=== PATIENT | male | born 1940 | race Caucasian/White ===

== ENCOUNTER 2017-02-06 02:58 | Inpatient (IN) | payer OTHER ==
[~2017-02-06] VITALS: Ht 180.3 cm; Wt 193.0 kg
[~2017-02-06 02:58] MED LIST: ALPRAZOLAM0.5 MG PO; ASPIR-LOW81 MG PO; ATORVASTATIN CA10 MG PO; CLARITIN10 M3 PO; DURAGESIC100 MCG TD; FEOSOL325 MG PO; GAVILAX17 GM PO; GLIMEPIRIDE2 MG PO; OXYCODONE HCL15 MG PO; PRINIVIL10 MG PO; TAMSULOSIN HCL0.4 MG PO; TRADJENTA5 MG PO; TYLENOL REGULA325 MG PO
[2017-02-06 03:37] LABS: HEMATOCRIT 29.7 % (38.0-50.0); MCH 27.8 PG (29.0-34.0); MCV 96.1 FL (86-99); MEAN PLAT.VOLUME 9.5 uM^3 (9.0-12.4); NRBC (%) 0.9 /100 WBC (0-0); PLATELET COUNT 143 K/uL (156-360); RBC DIS.WIDTH-CV 17.4 % (11.8-14.6); RBC DIS.WIDTH-SD 59.8 % (39-53); RED BLOOD COUNT 3.09 M/uL (4.00-5.50); WHITE BLOOD COUNT 4.5 K/uL (4.1-10.2)
[2017-02-06 03:46] LABS: CHLORIDE 112 mEq/L (99-109); SODIUM 140 mEq/L (136-147)
[2017-02-06 03:48] LABS: GLUCOSE 145 mg/dL (70-99)
[2017-02-06 03:49] LABS: ANION GAP 10 MEQ/L (2-14)
[2017-02-06 03:50] LABS: TOTAL BILIRUBIN 0.3 mg/dL (0.0-1.0)
[2017-02-06 03:52] LABS: GFR ESTIMATE (CALCULATED) 48 mL/min/
[2017-02-06 03:53] LABS: UREA NITROGEN (BUN) 68 mg/dL (9-23)
[2017-02-06 03:58] LABS: POTASSIUM 6.1 mEq/L (3.7-5.4); TROP-I INTERPRETATION NEGATIVE; TROPONIN-I 0.03 ng/mL (0.0-0.30)
[2017-02-06 04:06] LABS: ALKALINE PHOSPHATASE 514 IU/L (3-129)
[2017-02-06 04:12] LABS: INTER. NORMALIZED RATIO 1.1; PROTHROMBIN TIME 12.3 SEC (10.2-12.9)
[2017-02-06 04:14] LABS: PTT 21.6 SEC (25-37)
[2017-02-06 04:24] LABS: SAMPLE HEMOLYSIS CHECK 0; SAMPLE ICTERIC CHECK 0; SAMPLE LIPEMIA CHECK 0
[2017-02-06 04:30] LABS: LIPASE 33 U/L (1.0-51.0)
[2017-02-06 05:07] LABS: CREATININE 1.6 mg/dL (0.6-1.3)
[2017-02-06 07:20] LABS: ANION GAP 17 MEQ/L (2-14); CHLORIDE 107 mEq/L (99-109); CREATININE 1.6 mg/dL (0.6-1.3); GLUCOSE 133 mg/dL (70-99); ISTAT DEVICE 359068; POTASSIUM > 6.0 mEq/L (3.7-5.4); SODIUM 138 mEq/L (136-147); UREA NITROGEN (BUN) 73 mg/dL (9-23)
[2017-02-06 08:15] LABS: POTASSIUM 6.2 MEQ/L (3.7-5.4)
[2017-02-06] MEDS ORDERED: PROCRIT10000 UNI1 IM (08:26)
[2017-02-06] MEDS ORDERED: ASCORBIC ACID250 MG PO (08:29)
[2017-02-06] MEDS ORDERED: HEPARIN SO5000 UNIT4 SC (08:30)
[2017-02-06] MEDS ORDERED: ALKA-SELTZER H1 EACH PO (08:31)
[2017-02-06] MEDS ORDERED: DUONEB 2.5-0.5 M3 ML AEROSOL (08:32)
[2017-02-06] MEDS ORDERED: VANCOMYCIN125 MG/2.5 PO (08:34)
[2017-02-06 09:03] LABS: GAMMA-GT 17 IU/L (4-73)
[2017-02-06 10:51] LABS: ADD MIUA? NO; BILIRUBIN NEGATIVE; BLOOD NEGATIVE; COLOR YELLOW ((YELLOW)); GLUCOSE (STRIP) NEGATIVE; KETONES NEGATIVE; LEUKOCYTES NEGATIVE; NITRITE NEGATIVE; PROTEIN (STRIP) NEGATIVE; SPECIFIC GRAVITY 1.011 (1.000-1.030); UCUL ADDED? NO; UROBILINOGEN 0.2 MG/DL (0.2-1.0)
[2017-02-06 11:48] LABS: TROP-I INTERPRETATION NEGATIVE; TROPONIN-I 0.07 ng/mL (0.0-0.30)
[2017-02-06 13:06] VITALS: BP 140/60
[2017-02-06 13:56] LABS: POINT-OF-CARE METER ID UU14174225
[2017-02-06 15:27] LABS: ANION GAP 9 MEQ/L (2-14); CHLORIDE 109 MEQ/L (99-109); GFR ESTIMATE (CALCULATED) 42 mL/min/; GLUCOSE 130 mg/dL (70-99); SAMPLE HEMOLYSIS CHECK 0; SAMPLE ICTERIC CHECK 0; SAMPLE LIPEMIA CHECK 0; SODIUM 139 MEQ/L (136-147); UREA NITROGEN (BUN) 66 mg/dL (9-23)
[2017-02-06 15:29] LABS: POTASSIUM 6.4 MEQ/L (3.7-5.4)
[2017-02-06 15:34] VITALS: BP 113/56
[2017-02-06 16:16] LABS: TROP-I INTERPRETATION NEGATIVE
[2017-02-06 17:35] LABS: POINT-OF-CARE METER ID UU14174225
[2017-02-06 19:18] VITALS: BP 148/65
[2017-02-06 21:13] LABS: POINT-OF-CARE METER ID UU14174225
[2017-02-07 06:31] LABS: HEMATOCRIT 28.5 % (38.0-50.0); MCHC 28.1 G/DL (30.0-36.0); MCV 96.3 FL (86-99); NRBC (%) 1.1 /100 WBC (0-0); PLATELET COUNT 152 K/uL (156-360); RBC DIS.WIDTH-CV 17.5 % (11.8-14.6); RBC DIS.WIDTH-SD 59.7 % (39-53); RED BLOOD COUNT 2.96 M/uL (4.00-5.50); WHITE BLOOD COUNT 4.7 K/uL (4.1-10.2)
[2017-02-07 06:46] LABS: ALKALINE PHOSPHATASE 480 IU/L (3-129); ANION GAP 10 MEQ/L (2-14); CHLORIDE 108 MEQ/L (99-109); GFR ESTIMATE (CALCULATED) 42 mL/min/; GLUCOSE 116 mg/dL (70-99); SAMPLE HEMOLYSIS CHECK 0; SAMPLE ICTERIC CHECK 0; SAMPLE LIPEMIA CHECK 0; SODIUM 139 MEQ/L (136-147); TOTAL BILIRUBIN 0.3 MG/DL (0.0-1.0); UREA NITROGEN (BUN) 67 mg/dL (9-23)
[2017-02-07 06:52] VITALS: BP 152/53
[2017-02-07 07:10] LABS: POINT-OF-CARE METER ID UU14174225
[2017-02-07 09:56] LABS: POINT-OF-CARE METER ID UU14174225
[2017-02-07 11:06] LABS: POINT-OF-CARE METER ID UU14174225
[2017-02-07 14:10] LABS: ANION GAP 9 MEQ/L (2-14); CHLORIDE 108 MEQ/L (99-109); GFR ESTIMATE (CALCULATED) 42 mL/min/; GLUCOSE 145 mg/dL (70-99); SAMPLE HEMOLYSIS CHECK 0; SAMPLE ICTERIC CHECK 0; SAMPLE LIPEMIA CHECK 0; SODIUM 138 MEQ/L (136-147); UREA NITROGEN (BUN) 65 mg/dL (9-23)
[2017-02-07 15:18] VITALS: BP 156/79
[2017-02-07 16:20] LABS: POINT-OF-CARE METER ID UU14188625
[2017-02-07 19:29] VITALS: BP 122/63
[2017-02-07 21:14] LABS: POINT-OF-CARE METER ID UU13113717
[2017-02-08] VITALS (8 sets, daily range): BP systolic 88–162; BP diastolic 48–70
[2017-02-08 06:19] LABS: HEMATOCRIT 25.6 % (38.0-50.0); MCH 28.3 PG (29.0-34.0); MCHC 29.7 G/DL (30.0-36.0); MCV 95.2 FL (86-99); PLATELET COUNT 134 K/uL (156-360); RBC DIS.WIDTH-CV 17.5 % (11.8-14.6); RBC DIS.WIDTH-SD 59.8 % (39-53); RED BLOOD COUNT 2.69 M/uL (4.00-5.50); WHITE BLOOD COUNT 4.1 K/uL (4.1-10.2)
[2017-02-08 06:48] LABS: ANION GAP 9 MEQ/L (2-14); CHLORIDE 108 MEQ/L (99-109); GFR ESTIMATE (CALCULATED) 45 mL/min/; GLUCOSE 100 mg/dL (70-99); POTASSIUM 5.4 MEQ/L (3.7-5.4); SAMPLE HEMOLYSIS CHECK 0; SAMPLE ICTERIC CHECK 0; SAMPLE LIPEMIA CHECK 0; SODIUM 140 MEQ/L (136-147); UREA NITROGEN (BUN) 62 mg/dL (9-23)
[2017-02-08 07:47] LABS: POINT-OF-CARE METER ID UU14188625
[2017-02-08 09:41] LABS: INTERNAL CONTROL VALID? YES
[2017-02-08 12:22] LABS: POINT-OF-CARE METER ID UU14188625
[2017-02-08 12:33] LABS: HEMATOCRIT 26.5 % (38.0-50.0); MCV 94.3 FL (86-99)
[2017-02-08 17:45] LABS: POINT-OF-CARE METER ID UU14174225
[2017-02-08 20:12] LABS: HEMATOCRIT 28.9 % (38.0-50.0); MCV 94.8 FL (86-99)
[2017-02-08 22:32] LABS: POINT-OF-CARE METER ID UU13113717
[2017-02-09 04:49] VITALS: BP 149/76
[2017-02-09 06:01] LABS: EOSINOPHIL (%) 1.1 % (0-5); EOSINOPHIL COUNT 0.1 K/uL (0-0.3); HEMATOCRIT 27.9 % (38.0-50.0); IMMATURE GRANULOCYTE COUNT 0.1 K/uL; INSTRUMENT ABS NEUTROPHIL CT 2.4 K/uL; LYMPHOCYTE COUNT 1.2 K/uL (1.0-2.8); MCH 27.4 PG (29.0-34.0); MCV 94.3 FL (86-99); MEAN PLAT.VOLUME 9.4 uM^3 (9.0-12.4); MONOCYTE (%) 11.9 % (3-12); MONOCYTE COUNT 0.5 K/uL (0-0.8); NEUTROPHIL (%) 55.5 % (45-76); NEUTROPHIL COUNT 2.4 K/uL (1.8-6.4); NRBC (%) 0.9 /100 WBC (0-0); PLATELET COUNT 132 K/uL (156-360); RBC DIS.WIDTH-CV 17.5 % (11.8-14.6); RBC DIS.WIDTH-SD 59.2 % (39-53); RED BLOOD COUNT 2.96 M/uL (4.00-5.50); WHITE BLOOD COUNT 4.4 K/uL (4.1-10.2)
[2017-02-09 06:55] LABS: ANION GAP 9 MEQ/L (2-14); CHLORIDE 107 MEQ/L (99-109); GFR ESTIMATE (CALCULATED) > 59 mL/min/; GLUCOSE 100 mg/dL (70-99); POTASSIUM 5.1 MEQ/L (3.7-5.4); SAMPLE HEMOLYSIS CHECK 0; SAMPLE ICTERIC CHECK 0; SAMPLE LIPEMIA CHECK 0; SODIUM 140 MEQ/L (136-147); UREA NITROGEN (BUN) 53 mg/dL (9-23)
[2017-02-09 07:33] LABS: POINT-OF-CARE METER ID UU14174225
[2017-02-09 07:40] VITALS: BP 140/72
[2017-02-09 07:59] LABS: IRON 66 MCG/DL (35-150)
[2017-02-09 09:15] LABS: FERRITIN 280 NG/ML (22-322)
[2017-02-09 11:00] VITALS: BP 138/62
[2017-02-09 12:39] LABS: POINT-OF-CARE METER ID UU14188625
[2017-02-09 15:17] VITALS: BP 150/65
[2017-02-09 17:06] LABS: POINT-OF-CARE METER ID UU14188625
[2017-02-09 19:04] VITALS: BP 146/67
[2017-02-09 21:46] LABS: POINT-OF-CARE METER ID UU14174225
[2017-02-09 23:43] VITALS: BP 164/70
[2017-02-10 03:25] VITALS: BP 154/63
[2017-02-10 06:57] LABS: EOSINOPHIL (%) 0.8 % (0-5); HEMATOCRIT 29.8 % (38.0-50.0); IMMATURE GRANULOCYTE (%) 4.9 % (0.0-0.7); IMMATURE GRANULOCYTE COUNT 0.2 K/uL; INSTRUMENT ABS NEUTROPHIL CT 2.9 K/uL; LYMPHOCYTE COUNT 1.1 K/uL (1.0-2.8); MCH 27.6 PG (29.0-34.0); MCHC 29.5 G/DL (30.0-36.0); MCV 93.4 FL (86-99); MEAN PLAT.VOLUME 9.7 uM^3 (9.0-12.4); MONOCYTE (%) 11.7 % (3-12); MONOCYTE COUNT 0.6 K/uL (0-0.8); NEUTROPHIL (%) 59.1 % (45-76); NEUTROPHIL COUNT 2.9 K/uL (1.8-6.4); NRBC (%) 0.6 /100 WBC (0-0); PLATELET COUNT 151 K/uL (156-360); RBC DIS.WIDTH-CV 17.3 % (11.8-14.6); RED BLOOD COUNT 3.19 M/uL (4.00-5.50); WHITE BLOOD COUNT 4.9 K/uL (4.1-10.2)
[2017-02-10 07:21] LABS: ANION GAP 11 MEQ/L (2-14); CHLORIDE 103 MEQ/L (99-109); GFR ESTIMATE (CALCULATED) 57 mL/min/; GLUCOSE 110 mg/dL (70-99); POTASSIUM 4.7 MEQ/L (3.7-5.4); SAMPLE HEMOLYSIS CHECK 0; SAMPLE ICTERIC CHECK 0; SAMPLE LIPEMIA CHECK 0; SODIUM 143 MEQ/L (136-147); UREA NITROGEN (BUN) 43 mg/dL (9-23)
[2017-02-10 08:04] VITALS: BP 151/58
[2017-02-10 08:36] LABS: POINT-OF-CARE METER ID UU14174225
[2017-02-10 12:00] VITALS: BP 142/68
[2017-02-10 12:26] LABS: POINT-OF-CARE METER ID UU14188625
[2017-02-10 17:05] LABS: POINT-OF-CARE METER ID UU14188625
[2017-02-10 17:16] VITALS: BP 150/69
[2017-02-10 20:18] VITALS: BP 123/56
[2017-02-10 21:52] LABS: POINT-OF-CARE METER ID UU14188625
[2017-02-10 23:44] VITALS: BP 128/53
[2017-02-11 07:23] LABS: EOSINOPHIL COUNT 0.1 K/uL (0-0.3); HEMATOCRIT 30.1 % (38.0-50.0); IMMATURE GRANULOCYTE (%) 3.8 % (0.0-0.7); IMMATURE GRANULOCYTE COUNT 0.2 K/uL; INSTRUMENT ABS NEUTROPHIL CT 2.9 K/uL; LYMPHOCYTE COUNT 1.3 K/uL (1.0-2.8); MCH 27.6 PG (29.0-34.0); MCHC 29.2 G/DL (30.0-36.0); MCV 94.4 FL (86-99); MEAN PLAT.VOLUME 9.6 uM^3 (9.0-12.4); MONOCYTE (%) 11.8 % (3-12); MONOCYTE COUNT 0.6 K/uL (0-0.8); NEUTROPHIL (%) 57.9 % (45-76); NEUTROPHIL COUNT 2.9 K/uL (1.8-6.4); NRBC (%) 1.2 /100 WBC (0-0); PLATELET COUNT 141 K/uL (156-360); RBC DIS.WIDTH-CV 17.3 % (11.8-14.6); RBC DIS.WIDTH-SD 59.4 % (39-53); RED BLOOD COUNT 3.19 M/uL (4.00-5.50)
[2017-02-11 07:43] LABS: TROP-I INTERPRETATION NEGATIVE; TROPONIN-I 0.06 ng/mL (0.0-0.30)
[2017-02-11 07:47] LABS: ANION GAP 11 MEQ/L (2-14); CHLORIDE 100 MEQ/L (99-109); GFR ESTIMATE (CALCULATED) 57 mL/min/; GLUCOSE 112 mg/dL (70-99); POTASSIUM 4.4 MEQ/L (3.7-5.4); SAMPLE HEMOLYSIS CHECK 0; SAMPLE ICTERIC CHECK 0; SAMPLE LIPEMIA CHECK 0; SODIUM 142 MEQ/L (136-147); UREA NITROGEN (BUN) 45 mg/dL (9-23)
[2017-02-11 07:49] LABS: POINT-OF-CARE METER ID UU14188625
[2017-02-11 08:21] VITALS: BP 100/52
[2017-02-11 12:05] LABS: POINT-OF-CARE METER ID UU14188625
[2017-02-11 13:35] VITALS: BP 102/60
[2017-02-11 17:01] LABS: POINT-OF-CARE METER ID UU14188625
[2017-02-11 20:33] VITALS: BP 130/61
[2017-02-11 22:03] LABS: POINT-OF-CARE METER ID UU14188625
[2017-02-12 00:56] VITALS: BP 120/63
[2017-02-12 03:54] VITALS: BP 139/52
[2017-02-12 07:21] LABS: POINT-OF-CARE METER ID UU13113717
[2017-02-12 07:49] VITALS: BP 106/60
[2017-02-12 10:22] LABS: EOSINOPHIL (%) 0.3 % (0-5); HEMATOCRIT 30.3 % (38.0-50.0); IMMATURE GRANULOCYTE (%) 2.1 % (0.0-0.7); IMMATURE GRANULOCYTE COUNT 0.2 K/uL; INSTRUMENT ABS NEUTROPHIL CT 5.4 K/uL; LYMPHOCYTE COUNT 0.9 K/uL (1.0-2.8); MCH 28.2 PG (29.0-34.0); MCHC 29.7 G/DL (30.0-36.0); MEAN PLAT.VOLUME 9.6 uM^3 (9.0-12.4); MONOCYTE (%) 9.6 % (3-12); MONOCYTE COUNT 0.7 K/uL (0-0.8); NEUTROPHIL (%) 74.8 % (45-76); NEUTROPHIL COUNT 5.4 K/uL (1.8-6.4); NRBC (%) 0.3 /100 WBC (0-0); PLATELET COUNT 134 K/uL (156-360); RBC DIS.WIDTH-CV 17.3 % (11.8-14.6); RBC DIS.WIDTH-SD 59.1 % (39-53); RED BLOOD COUNT 3.19 M/uL (4.00-5.50); WHITE BLOOD COUNT 7.2 K/uL (4.1-10.2)
[2017-02-12 10:46] LABS: ANION GAP 12 MEQ/L (2-14); CHLORIDE 98 MEQ/L (99-109); GFR ESTIMATE (CALCULATED) 53 mL/min/; POTASSIUM 4.7 MEQ/L (3.7-5.4); SAMPLE HEMOLYSIS CHECK 0; SAMPLE ICTERIC CHECK 0; SAMPLE LIPEMIA CHECK 0; SODIUM 143 MEQ/L (136-147); UREA NITROGEN (BUN) 49 mg/dL (9-23)
[2017-02-12 10:48] LABS: GLUCOSE 171 mg/dL (70-99)
[2017-02-12 12:21] LABS: POINT-OF-CARE METER ID UU13113717
[2017-02-12] MEDS ORDERED: PROTONIX40 MG PO (12:39)
[2017-02-12] MEDS ORDERED: DURAGESIC100 MCG TD (12:39)
[2017-02-12] MEDS ORDERED: OXYCODONE HCL15 MG PO (12:39)
[2017-02-12] MEDS ORDERED: LOPRESSOR25 MG PO (12:39)
[2017-02-12] MEDS ORDERED: BUMETANIDE1 MG PO (12:39)
[2017-02-12] MEDS ORDERED: METOLAZONE5 MG PO (12:57)
[2017-02-12 14:32] VITALS: BP 110/50
== END 2017-02-12 16:05 | DRG 640 ==
LOC: EME 02:58 → EDOF 07:43 → 5SOUTH 07:43 → ENRESERV 07:44 → 5SOUTH 12:33
PROVIDERS: Emergency Medicine; Internal Medicine; Internal Medicine Cardiovascular Disease; Internal Medicine Gastroenterology; Internal Medicine Nephrology; Physician Assistant Medical
DX: E87.5 Hyperkalemia (principal); J81.0 Acute pulmonary edema; N17.9 Acute kidney failure, unspecified; I47.2 Ventricular tachycardia; Z68.44 Body mass index [BMI] 60.0-69.9, adult; K92.2 Gastrointestinal hemorrhage, unspecified; A04.72 Enterocolitis due to Clostridium difficile, not specified as recurrent; E66.01 Morbid (severe) obesity due to excess calories; Z51.5 Encounter for palliative care; Z66 Do not resuscitate; I27.20 Pulmonary hypertension, unspecified; I48.0 Paroxysmal atrial fibrillation; E78.5 Hyperlipidemia, unspecified; I35.0 Nonrheumatic aortic (valve) stenosis; I87.2 Venous insufficiency (chronic) (peripheral); R33.8 Other retention of urine; N40.1 Benign prostatic hyperplasia with lower urinary tract symptoms; D50.9 Iron deficiency anemia, unspecified; E11.22 Type 2 diabetes mellitus with diabetic chronic kidney disease; G89.29 Other chronic pain; L30.9 Dermatitis, unspecified; G47.30 Sleep apnea, unspecified; R15.9 Full incontinence of feces; R32 Unspecified urinary incontinence; N18.3 Chronic kidney disease, stage 3 (moderate); I13.10 Hypertensive heart and chronic kidney disease without heart failure, with stage 1 through stage 4 chronic kidney disease, or unspecified chronic kidney disease; D63.1 Anemia in chronic kidney disease; I95.9 Hypotension, unspecified; J44.9 Chronic obstructive pulmonary disease, unspecified; I89.0 Lymphedema, not elsewhere classified; J45.909 Unspecified asthma, uncomplicated; L89.329 Pressure ulcer of left buttock, unspecified stage; L89.319 Pressure ulcer of right buttock, unspecified stage; Z79.4 Long term (current) use of insulin; Z83.3 Family history of diabetes mellitus; Z87.891 Personal history of nicotine dependence; Z79.1 Long term (current) use of non-steroidal anti-inflammatories (NSAID); Z79.82 Long term (current) use of aspirin; Z99.81 Dependence on supplemental oxygen; Z91.19 Patient's noncompliance with other medical treatment and regimen
CPT/HCPCS: 71010; 76770; 78582; 80047; 80048; 80048 91; 80053; 81003; 82043; 82272; 82570; 82607; 82728; 82746; 82948; 82977; 83540; 83690; 83880; 84300; 84466; 84484; 84550; 84999; 85014; 85018; 85025; 85027; 85610; 85730; 87040; 87493; 93005; 93306; 93970; 93971; 94640; 94640 76; 94799; 99202; 99281; 99285; A9540; A9567; C9113; J0610; J0690; J0881; J1160; J1644; J1815; J1940; J2405; J7050; S0028

== ENCOUNTER 2017-03-14 19:14 | Inpatient (IN) | payer OTHER ==
[~2017-03-14] VITALS: Ht 180.3 cm; Wt 216.0 kg
[~2017-03-14 19:14] MED LIST changes: +ALKA-SELTZER H1 EACH PO; +ASCORBIC ACID250 MG PO; +BUMETANIDE1 MG PO; +DUONEB 2.5-0.5 M3 ML AEROSOL; +FLEXERIL5 MG PO; +HEPARIN SO5000 UNIT4 SC; +LOPRESSOR25 MG PO; +MELATONIN5 M1 PO; +METOLAZONE5 MG PO; +MIRALAX17 GM PO; +PROCRIT10000 UNI1 IM; +PROTONIX40 MG PO; +VANCOMYCIN125 MG/2.5 PO
[2017-03-14 21:08] LABS: HEMATOCRIT 32.5 % (38.0-50.0); HEMOGLOBIN 10.1 G/DL (12.5-16.6); MCH 28.1 PG (29.0-34.0); MCHC 31.1 G/DL (30.0-36.0); MCV 90.3 FL (86-99); NRBC (%) 1.8 /100 WBC (0-0); RBC DIS.WIDTH-CV 16.5 % (11.8-14.6); RBC DIS.WIDTH-SD 55.6 % (39-53); WHITE BLOOD COUNT 10.8 K/uL (4.1-10.2)
[2017-03-14 21:25] LABS: ALBUMIN 2.2 g/dL (3.2-4.8); CHLORIDE 89 mEq/L (99-109); POTASSIUM 4.9 mEq/L (3.7-5.4)
[2017-03-14 21:26] LABS: SODIUM 129 mEq/L (136-147)
[2017-03-14 21:28] LABS: GLUCOSE 142 mg/dL (70-99); TOTAL PROTEIN 5.2 g/dL (6.4-8.3)
[2017-03-14 21:30] LABS: TOTAL BILIRUBIN 0.5 mg/dL (0.0-1.0)
[2017-03-14 21:31] LABS: ALKALINE PHOSPHATASE 373 IU/L (3-129); CREATININE 3.6 mg/dL (0.6-1.3); GFR ESTIMATE (CALCULATED) 18 mL/min/ (58.99-99999)
[2017-03-14 21:33] LABS: AST (GOT) 8 IU/L (2-34); UREA NITROGEN (BUN) 96 mg/dL (9-23)
[2017-03-14 21:34] LABS: ALT (GPT) 10 IU/L (3-49)
[2017-03-14 21:36] LABS: TROP-I INTERPRETATION NEGATIVE; TROPONIN-I 0.09 ng/mL (0.0-0.30)
[2017-03-14 22:13] LABS: PLATELET COUNT UNABLE TO REPORT K/uL (156-360)
[2017-03-14 22:15] LABS: ATYPICAL LYMPHOCYTE 0.9 %; BAND NEUTROPHILS 14.2 % (0-8.0); EOSINOPHIL ABS CT 0; HEMATOLOGY COMMENT 1 SN; LYMPHOCYTES 4.4 % (15.0-45.0); METAMYELOCYTES 2.6 %; MYELOCYTES 0.9 %; NUCLEATED RBC'S 4.4; TOXIC GRANULATION 1+
[2017-03-14 23:52] LABS: INTER. NORMALIZED RATIO 1.4
[2017-03-15] VITALS (22 sets, daily range): BP systolic 74–128; BP diastolic 45–107
[2017-03-15 00:55] LABS: PTT 16.6 SEC (25-37)
[2017-03-15 04:29] LABS: HEMATOCRIT 29.8 % (38.0-50.0); MCH 27.2 PG (29.0-34.0); MCHC 30.2 G/DL (30.0-36.0); NRBC (%) 1.8 /100 WBC (0-0); PLATELET COUNT 219 K/uL (156-360); RBC DIS.WIDTH-CV 16.8 % (11.8-14.6); RBC DIS.WIDTH-SD 55.4 % (39-53); RED BLOOD COUNT 3.31 M/uL (4.00-5.50); WHITE BLOOD COUNT 11.4 K/uL (4.1-10.2)
[2017-03-15 04:40] LABS: CHLORIDE 95 mEq/L (99-109); MAGNESIUM 1.2 mg/dL (1.3-2.7); POTASSIUM 4.7 mEq/L (3.7-5.4); SODIUM 132 mEq/L (136-147)
[2017-03-15 04:42] LABS: GLUCOSE 130 mg/dL (70-99)
[2017-03-15 04:44] LABS: TOTAL BILIRUBIN 0.5 mg/dL (0.0-1.0)
[2017-03-15 04:45] LABS: PHOSPHORUS 5.1 mg/dL (2.5-4.9)
[2017-03-15 04:46] LABS: ALKALINE PHOSPHATASE 323 IU/L (3-129); CREATININE 3.5 mg/dL (0.6-1.3); GFR ESTIMATE (CALCULATED) 18 mL/min/ (58.99-99999)
[2017-03-15 04:47] LABS: AST (GOT) 8 IU/L (2-34); UREA NITROGEN (BUN) 91 mg/dL (9-23)
[2017-03-15 04:49] LABS: ALT (GPT) 8 IU/L (3-49)
[2017-03-15 04:50] LABS: TOTAL PROTEIN 4.2 g/dL (6.4-8.3)
[2017-03-15 05:07] LABS: ACANTHOCYTES 1+; ANISOCYTOSIS 1+; BAND NEUTROPHILS 6.1 % (0-8.0); BURR CELLS 1+; EOSINOPHIL ABS CT 0; GIANT PLATELETS 1+; LYMPHOCYTES 5.3 % (15.0-45.0); NUCLEATED RBC'S 2.6; PLAT.SUFFICIENCY ADEQUATE; PLATELET CLUMPS PRESENT - PLATELET COUNT APPEARS ADQ.; POIKILOCYTOSIS 1+; SEG.NEUTROPHILS 81.6 % (46.0-76.0); TEAR DROP CELLS 1+
[2017-03-15 05:16] LABS: VANCOMYCIN, TROUGH 18.2 MCG/ML (10-20)
[2017-03-16] VITALS (24 sets, daily range): BP systolic 81–141; BP diastolic 41–88
[2017-03-16 02:09] LABS: C DIFF TOXIN POSITIVE (NEGATIVE)
[2017-03-16 05:58] LABS: HEMATOCRIT 29.1 % (38.0-50.0); HEMOGLOBIN 8.7 G/DL (12.5-16.6); MCHC 29.9 G/DL (30.0-36.0); MCV 90.4 FL (86-99); NRBC (%) 1.8 /100 WBC (0-0); PLATELET COUNT 175 K/uL (156-360); RBC DIS.WIDTH-CV 16.8 % (11.8-14.6); RED BLOOD COUNT 3.22 M/uL (4.00-5.50); WHITE BLOOD COUNT 7.3 K/uL (4.1-10.2)
[2017-03-16 06:32] LABS: ALBUMIN 1.9 G/DL (3.2-4.8); ALKALINE PHOSPHATASE 264 IU/L (3-129); ALT (GPT) 5 IU/L (3-49); AST (GOT) 9 IU/L (2-34); CHLORIDE 94 MEQ/L (99-109); CREATININE 3.2 MG/DL (0.6-1.3); GFR ESTIMATE (CALCULATED) 20 mL/min/ (58.99-99999); GLUCOSE 131 mg/dL (70-99); POTASSIUM 4.5 MEQ/L (3.7-5.4); SODIUM 130 MEQ/L (136-147); TOTAL BILIRUBIN 0.3 MG/DL (0.0-1.0); TOTAL PROTEIN 4.2 G/DL (6.4-8.3); UREA NITROGEN (BUN) 92 mg/dL (9-23)
[2017-03-16] MEDS ORDERED: FENTANYL1 EAC3 TD (07:37)
[2017-03-16] MEDS ORDERED: OXYCODONE HCL15 MG PO (07:39)
[2017-03-16 16:14] LABS: VANCOMYCIN, TROUGH 21.6 MCG/ML (10-20)
[2017-03-17] VITALS (22 sets, daily range): BP systolic 74–143; BP diastolic 43–98
[2017-03-17 10:03] LABS: HEMATOCRIT 31.1 % (38.0-50.0); HEMOGLOBIN 9.7 G/DL (12.5-16.6); MCH 28.4 PG (29.0-34.0); MCHC 31.2 G/DL (30.0-36.0); MCV 91.2 FL (86-99); NRBC (%) 2.1 /100 WBC (0-0); PLATELET COUNT 181 K/uL (156-360); RBC DIS.WIDTH-CV 17.3 % (11.8-14.6); RBC DIS.WIDTH-SD 57.8 % (39-53); RED BLOOD COUNT 3.41 M/uL (4.00-5.50); WHITE BLOOD COUNT 7.8 K/uL (4.1-10.2)
[2017-03-17 10:31] LABS: ALBUMIN 2.2 G/DL (3.2-4.8); ALKALINE PHOSPHATASE 243 IU/L (3-129); ALT (GPT) 5 IU/L (3-49); AST (GOT) 10 IU/L (2-34); CHLORIDE 94 MEQ/L (99-109); CREATININE 3.4 MG/DL (0.6-1.3); GFR ESTIMATE (CALCULATED) 19 mL/min/ (58.99-99999); GLUCOSE 141 mg/dL (70-99); MAGNESIUM 1.8 mg/dl (1.3-2.7); PHOSPHORUS 5.2 mg/dL (2.5-4.9); POTASSIUM 4.7 MEQ/L (3.7-5.4); SODIUM 131 MEQ/L (136-147); TOTAL PROTEIN 4.6 G/DL (6.4-8.3); UREA NITROGEN (BUN) 89 mg/dL (9-23)
[2017-03-17 10:38] LABS: ABS NEUTROPHIL COUNT 6.8; ANISOCYTOSIS 2+; BAND NEUTROPHILS 12.1 % (0-8.0); BURR CELLS 1+; EOSINOPHIL ABS CT 0; METAMYELOCYTES 0.9 %; MONOCYTES 5.2 % (0-9.0); MYELOCYTES 0.8 %; NUCLEATED RBC'S 2.6; OVALOCYTES 1+; PLAT.SUFFICIENCY ADEQUATE; POIKILOCYTOSIS 1+; POLYCHROMASIA 1+; SPHEROCYTES 1+; TEAR DROP CELLS 1+
[2017-03-17 10:52] LABS: TOTAL BILIRUBIN 0.5 MG/DL (0.0-1.0)
[2017-03-17 10:53] LABS: HIGH-SENS C-REACTIVE PROTEIN > 8.00 MG/DL (0.02-0.20)
[2017-03-18] VITALS (24 sets, daily range): BP systolic 81–140; BP diastolic 27–93
[2017-03-18 06:44] LABS: HEMOGLOBIN 8.6 G/DL (12.5-16.6); MCH 28.7 PG (29.0-34.0); MCHC 31.9 G/DL (30.0-36.0); NRBC (%) 1.3 /100 WBC (0-0); RBC DIS.WIDTH-SD 56.5 % (39-53); WHITE BLOOD COUNT 4.8 K/uL (4.1-10.2)
[2017-03-18 06:53] LABS: ALBUMIN 2.5 G/DL (3.2-4.8); ALT (GPT) 5 IU/L (3-49); AST (GOT) 10 IU/L (2-34); CHLORIDE 93 MEQ/L (99-109); CREATININE 3.6 MG/DL (0.6-1.3); GFR ESTIMATE (CALCULATED) 18 mL/min/ (58.99-99999); MAGNESIUM 1.8 mg/dl (1.3-2.7); PHOSPHORUS 5.4 mg/dL (2.5-4.9); POTASSIUM 4.5 MEQ/L (3.7-5.4); SODIUM 129 MEQ/L (136-147); TOTAL BILIRUBIN 0.4 MG/DL (0.0-1.0); TOTAL PROTEIN 4.4 G/DL (6.4-8.3); UREA NITROGEN (BUN) 93 mg/dL (9-23)
[2017-03-18 07:02] LABS: ALKALINE PHOSPHATASE 179 IU/L (3-129); GLUCOSE 93 mg/dL (70-99)
[2017-03-18 07:32] LABS: ABS NEUTROPHIL COUNT 3.4; ANISOCYTOSIS 2+; EOSINOPHIL ABS CT 0; HYPOCHROMASIA 1+; LYMPHOCYTES 18.8 % (15.0-45.0); MONOCYTES 4.9 % (0-9.0); OVALOCYTES 1+; PLAT.SUFFICIENCY DECREASED; SEG.NEUTROPHILS 68.3 % (46.0-76.0); TEAR DROP CELLS 1+
[2017-03-18 07:33] LABS: PLATELET COUNT 101 K/uL (156-360)
[2017-03-19] VITALS (23 sets, daily range): BP systolic 87–142; BP diastolic 44–101
[2017-03-19 08:12] LABS: HEMATOCRIT 26.6 % (38.0-50.0); HEMOGLOBIN 8.3 G/DL (12.5-16.6); MCH 28.2 PG (29.0-34.0); MCHC 31.2 G/DL (30.0-36.0); MCV 90.5 FL (86-99); PLATELET COUNT 90 K/uL (156-360); RBC DIS.WIDTH-CV 17.1 % (11.8-14.6); RED BLOOD COUNT 2.94 M/uL (4.00-5.50); WHITE BLOOD COUNT 5.2 K/uL (4.1-10.2)
[2017-03-19 08:41] LABS: ALBUMIN 2.3 G/DL (3.2-4.8); ALKALINE PHOSPHATASE 148 IU/L (3-129); ALT (GPT) 4 IU/L (3-49); AST (GOT) 9 IU/L (2-34); CHLORIDE 94 MEQ/L (99-109); CREATININE 3.8 MG/DL (0.6-1.3); GFR ESTIMATE (CALCULATED) 17 mL/min/ (58.99-99999); GLUCOSE 77 mg/dL (70-99); MAGNESIUM 1.8 mg/dl (1.3-2.7); PHOSPHORUS 5.9 mg/dL (2.5-4.9); POTASSIUM 4.6 MEQ/L (3.7-5.4); SODIUM 129 MEQ/L (136-147); UREA NITROGEN (BUN) 97 mg/dL (9-23)
[2017-03-19 08:43] LABS: ABS NEUTROPHIL COUNT 3.7; ANISOCYTOSIS 1+; ATYPICAL LYMPHOCYTE 3.7 %; BAND NEUTROPHILS 5.6 % (0-8.0); EOSINOPHIL ABS CT 0; EOSINOPHILS 0.9 % (0-5.0); HYPOCHROMASIA 1+; LYMPHOCYTES 19.5 % (15.0-45.0); MONOCYTES 4.6 % (0-9.0); NUCLEATED RBC'S 3.7; PLAT.SUFFICIENCY DECREASED; SEG.NEUTROPHILS 65.7 % (46.0-76.0)
[2017-03-19 08:44] LABS: TOTAL BILIRUBIN 0.5 MG/DL (0.0-1.0)
[2017-03-20] VITALS (24 sets, daily range): BP systolic 55–141; BP diastolic 33–119
[2017-03-20 04:53] LABS: BASOPHIL (%) 0.2 % (0-1); EOSINOPHIL (%) 0.3 % (0-5); HEMATOCRIT 28.7 % (38.0-50.0); HEMOGLOBIN 8.9 G/DL (12.5-16.6); IMMATURE GRANULOCYTE (%) 4.7 % (0.0-0.7); LYMPHOCYTE (%) 15.7 % (15-42); MCH 27.5 PG (29.0-34.0); MCV 88.6 FL (86-99); MONOCYTE (%) 6.4 % (3-12); MONOCYTE COUNT 0.4 K/uL (0-0.8); NEUTROPHIL (%) 72.7 % (45-76); NEUTROPHIL COUNT 4.6 K/uL (1.8-6.4); NRBC (%) 0.8 /100 WBC (0-0); PLATELET COUNT 96 K/uL (156-360); RBC DIS.WIDTH-CV 17.1 % (11.8-14.6); RBC DIS.WIDTH-SD 55.6 % (39-53); RED BLOOD COUNT 3.24 M/uL (4.00-5.50); WHITE BLOOD COUNT 6.4 K/uL (4.1-10.2)
[2017-03-20 05:31] LABS: ALBUMIN 2.2 g/dL (3.2-4.8)
[2017-03-20 05:32] LABS: CHLORIDE 95 mEq/L (99-109); POTASSIUM 4.9 mEq/L (3.7-5.4); SODIUM 128 mEq/L (136-147)
[2017-03-20 05:33] LABS: ALBUMIN 2.3 g/dL (3.2-4.8); CHLORIDE 95 mEq/L (99-109); POTASSIUM 4.9 mEq/L (3.7-5.4); SODIUM 126 mEq/L (136-147)
[2017-03-20 05:34] LABS: GLUCOSE 66 mg/dL (70-99); MAGNESIUM 1.9 mg/dL (1.3-2.7)
[2017-03-20 05:36] LABS: GLUCOSE 66 mg/dL (70-99); TOTAL PROTEIN 4.6 g/dL (6.4-8.3)
[2017-03-20 05:37] LABS: CREATININE 3.9 mg/dL (0.6-1.3); GFR ESTIMATE (CALCULATED) 16 mL/min/ (58.99-99999); PHOSPHORUS 6.1 mg/dL (2.5-4.9); TOTAL BILIRUBIN 0.5 mg/dL (0.0-1.0)
[2017-03-20 05:38] LABS: UREA NITROGEN (BUN) 97 mg/dL (9-23)
[2017-03-20 05:39] LABS: CREATININE 3.9 mg/dL (0.6-1.3); GFR ESTIMATE (CALCULATED) 16 mL/min/ (58.99-99999); PHOSPHORUS 6.1 mg/dL (2.5-4.9)
[2017-03-20 05:40] LABS: ALKALINE PHOSPHATASE 165 IU/L (3-129); UREA NITROGEN (BUN) 98 mg/dL (9-23)
[2017-03-20 05:42] LABS: ALT (GPT) 8 IU/L (3-49)
[2017-03-20 05:43] LABS: AST (GOT) 14 IU/L (2-34)
[2017-03-20 06:47] LABS: VANCOMYCIN, TROUGH 19.7 MCG/ML (10-20)
[2017-03-20 10:38] LABS: HEPATITIS B SURFACE ANTIBODY Nonreactive; HEPATITIS B SURFACE ANTIGEN Nonreactive
[2017-03-21] VITALS (11 sets, daily range): BP systolic 79–138; BP diastolic 32–85
[2017-03-21 07:08] LABS: BASOPHIL (%) 0 % (0-1); EOSINOPHIL (%) 0.3 % (0-5); HEMATOCRIT 26.1 % (38.0-50.0); HEMOGLOBIN 8.2 G/DL (12.5-16.6); LYMPHOCYTE (%) 15.7 % (15-42); MCH 28.3 PG (29.0-34.0); MCHC 31.4 G/DL (30.0-36.0); MONOCYTE (%) 6.8 % (3-12); MONOCYTE COUNT 0.5 K/uL (0-0.8); NEUTROPHIL (%) 73.2 % (45-76); NEUTROPHIL COUNT 4.8 K/uL (1.8-6.4); NRBC (%) 0.8 /100 WBC (0-0); PLATELET COUNT 81 K/uL (156-360); RBC DIS.WIDTH-CV 17.3 % (11.8-14.6); RBC DIS.WIDTH-SD 57.6 % (39-53); WHITE BLOOD COUNT 6.6 K/uL (4.1-10.2)
[2017-03-21 07:39] LABS: ALBUMIN 2.8 G/DL (3.2-4.8); ALKALINE PHOSPHATASE 130 IU/L (3-129); ALT (GPT) 6 IU/L (3-49); AST (GOT) 10 IU/L (2-34); CHLORIDE 91 MEQ/L (99-109); CREATININE 4.1 MG/DL (0.6-1.3); GFR ESTIMATE (CALCULATED) 15 mL/min/ (58.99-99999); GLUCOSE 64 mg/dL (70-99); MAGNESIUM 1.8 mg/dl (1.3-2.7); PHOSPHORUS 6.4 mg/dL (2.5-4.9); POTASSIUM 4.4 MEQ/L (3.7-5.4); SODIUM 126 MEQ/L (136-147); TOTAL BILIRUBIN 0.5 MG/DL (0.0-1.0); TOTAL PROTEIN 4.3 G/DL (6.4-8.3); UREA NITROGEN (BUN) 103 mg/dL (9-23)
[2017-03-23 00:26] VITALS: BP 173/76
[2017-03-23] MEDS ORDERED: TRANSDERM-SCOP1 EACH TD (08:50)
[2017-03-23] MEDS ORDERED: LEVSIN-SL0.125 MG SL (08:50)
[2017-03-23] MEDS ORDERED: MORPHINE CON20 MG/M1 PO (08:50)
[2017-03-23] MEDS ORDERED: ATIVAN INTE2 MG/1 ML PO (08:50)
[2017-03-23] MEDS ORDERED: ATROPINE 1100 DROP/5 PO (08:50)
== END 2017-03-23 14:23 | DRG 871 ==
LOC: EME 19:14 → EDOF 23:11 → 4WEST 23:11 → ENRESERV 23:13 → 4WEST 03-15 02:33 → ENRESERV 03-21 17:23 → 5EAST 03-21 19:50 → ENPENDDIS 03-23 → EDPENDDISTM 03-23 13:45 → 5EAST 03-23 14:23
PROVIDERS: Emergency Medicine; Internal Medicine; Internal Medicine Critical Care Medicine; Internal Medicine Nephrology; Specialist
PROC: 02HV33Z Insertion of Infusion Device into Superior Vena Cava, Percutaneous Approach (ICD-10-PCS; principal; 2017-03-14)
DX: A41.9 Sepsis, unspecified organism (principal); R57.1 Hypovolemic shock; A04.72 Enterocolitis due to Clostridium difficile, not specified as recurrent; E11.22 Type 2 diabetes mellitus with diabetic chronic kidney disease; R65.21 Severe sepsis with septic shock; N17.0 Acute kidney failure with tubular necrosis; L89.152 Pressure ulcer of sacral region, stage 2; N18.3 Chronic kidney disease, stage 3 (moderate); E87.1 Hypo-osmolality and hyponatremia; E87.2 Acidosis; Z51.5 Encounter for palliative care; Z66 Do not resuscitate; J44.9 Chronic obstructive pulmonary disease, unspecified; I48.0 Paroxysmal atrial fibrillation; I50.9 Heart failure, unspecified; E78.5 Hyperlipidemia, unspecified; D64.9 Anemia, unspecified; E66.01 Morbid (severe) obesity due to excess calories; I27.20 Pulmonary hypertension, unspecified; I13.0 Hypertensive heart and chronic kidney disease with heart failure and stage 1 through stage 4 chronic kidney disease, or unspecified chronic kidney disease; E83.39 Other disorders of phosphorus metabolism; F41.9 Anxiety disorder, unspecified; Z79.4 Long term (current) use of insulin; Z87.891 Personal history of nicotine dependence; Z74.01 Bed confinement status
CPT/HCPCS: 71010; 76700; 80053; 80069; 80202; 81003; 82948; 83605; 83735; 83880; 84100; 84145 90; 84484; 85025; 85025 91; 85027; 85610; 85730; 86141; 86706; 86850; 86900; 86901; 87040; 87340; 87493; 87641; 93005; 94799; 99281; 99285; J1644; J1940; J2060; J2270; J2370; J2543; J3010; J3370; J3475; J7030; J7040; J7050; J7070; J7120; P9047; S0028